=== PATIENT | female | born 1980 | race Caucasian/White ===

== ENCOUNTER 2023-12-23 15:18 | Emergency (ER) | payer MEDICAID ==
[~2023-12-23] VITALS: Ht 154.9 cm; Wt 73.0 kg
[2023-12-23 15:24] VITALS: O2SAT 98
[2023-12-23 16:03] LABS: BASOPHILS % 0.7 % (0.0-2.0); EOSINOPHILS % 1.9 % (0.0-5.0); HEMATOCRIT. 36.5 % (36.0-48.0); LYMPHOCYTES % 23.2 % (20.0-50.0); MEAN CORPUSCULAR HGB CONC 32.8 g/dL (31.0-37.0); MEAN CORPUSCULAR VOLUME 85.5 fL (81.0-99.0); MEAN PLATELET VOLUME 8.5 fl (7.4-10.4); MONOCYTES % 4.8 % (2.0-8.0); NEUTROPHILS % 69.4 % (40.0-76.0); PLATELET 367 x1000/uL (130-400); RED BLOOD CELL COUNT 4.27 mill/uL (4.2-5.4); RED CELL DISTRIBUTION WIDTH 15.1 % (11.6-14.6); WHITE BLOOD COUNT 5.8 x1000/uL (4.5-11.0)
[2023-12-23 16:21] LABS: HCG SCREEN NEGATIVE
[2023-12-23] MEDS: SODIUM CHLORIDE 0.9% 1,000 ML IV ONE (16:23)
[2023-12-23] MEDS: KETOROLAC 15MG/ML VIAL IV ONE (16:23)
[2023-12-23] MEDS: ONDANSETRON HCL 4MG/2ML INJ IV ONE (16:23)
[2023-12-23 16:24] LABS: ALANINE AMINOTRANSFERASE 11 IU/L (10-49); ALBUMIN 4.4 g/dL (3.2-4.8); ASPARTATE AMINOTRANSFERASE 19 IU/L (<34); BILIRUBIN TOTAL 0.3 mg/dL (0.1-1.0); CALCIUM 8.3 mg/dL (8.7-10.4); CARBON DIOXIDE 21 mEq/L (21-32); CHLORIDE 110 mEq/L (98-107); GLUCOSE 120 mg/dL (70-105); POTASSIUM 3.6 mEq/L (3.5-5.1); PROTEIN TOTAL 7.4 g/dL (6.0-8.3); SODIUM 140 mEq/L (136-145); UREA NITROGEN BLOOD 11 mg/dL (9-23)
[2023-12-23] MEDS: MECLIZINE 25MG TABLET PO ONE (16:30)
[2023-12-23 16:54] LABS: TROPONIN I HIGH SENSITIVITY < 4 ng/L (3.0-34)
[2023-12-23 18:59] VITALS: TEMP 98
[2023-12-23 19:03] LABS: INR 0.9; PARTIAL THROMBOPLASTIN TIME 29.3 sec (23.4-31.0); PROTHROMBIN TIME 10.4 sec (9.6-11.0)
[2023-12-23] MEDS ORDERED: IOHEXOL-350 100 ML BOTTLE ONE (21:02)
[2023-12-23 21:10] VITALS: BP 116/54; PULSE 72; RESP 14
== END 2023-12-23 21:22 | disposition home or self-care (01) ==
LOC: ER 15:18
DX: R53.1 Weakness (principal); R42 Dizziness and giddiness; R07.89 Other chest pain
CPT/HCPCS: 80053; 82962; 84703; 83880; 85025; 85379; 85610; 85730; 84484; 36415; 71045; 71275; 70450; 93005; 96361; 96374; 96375; 99285; Q9967; J8597; J1885; J2405; J7030; Z7610 ×3